=== PATIENT | male | born 1955 | race Caucasian/White ===

== ENCOUNTER 2016-05-05 22:04 | Emergency (ER) | payer BC ==
[2016-05-05] MEDS ORDERED: NITROGLYCERIN 0.4 MG TAB SL PRN (22:19)
[2016-05-05] MEDS ORDERED: ASPIRIN 81 MG CHEWABLE CTB PO STA (22:19)
[2016-05-05 22:24] VITALS: TEMP 98.6
[2016-05-05] MEDS ORDERED: NITROGLYCERIN 0.4 MG TAB SL ONE (22:25)
[2016-05-05] MEDS ORDERED: ASPIRIN 81 MG CHEWABLE CTB ONE (22:25)
[2016-05-05 22:27] LABS: BASOPHILS % (AUTO) 1 % (0-3); EOSINOPHILS % (AUTO) 1 % (0-9); HEMATOCRIT 46 % (39-53); MEAN CORPUSCULAR HGB CONC 34.8 gm/dl (32.0-36.0); MEAN CORPUSCULAR VOLUME 86 fL (80-100); MONOCYTES % (AUTO) 6.1 % (0-12); NEUTROPHILS % (AUTO) 79.1 % (37-80)
[2016-05-05] MEDS: SODIUM CHLORIDE 0.9% FLUSH 10 ML SOL IV PRN (22:33)
[2016-05-05] MEDS ORDERED: ALUMINUM/MAGNESIUM 30 ML SUS PO PRN (22:41)
[2016-05-05] MEDS ORDERED: LIDOCAINE HCL 2% (VISCOUS) 20 ML SOL MT ONE (22:42)
[2016-05-05] MEDS ORDERED: LIDOCAINE HCL 2% (VISCOUS) 20 ML SOL ONE (22:43)
[2016-05-05] MEDS ORDERED: ALUMINUM/MAGNESIUM 30 ML SUS ONE (22:43)
[2016-05-05] MEDS ORDERED: MORPHINE SULFATE 10 MG/ML SOL IV ONE (22:52)
[2016-05-05] MEDS ORDERED: ONDANSETRON HCL 4 MG/2 ML SOL IV ONE (22:52)
[2016-05-05] MEDS ORDERED: ONDANSETRON HCL 4 MG/2 ML SOL ONE (22:54)
[2016-05-05] MEDS ORDERED: MORPHINE SULFATE 10 MG/ML SOL ONE (22:54)
[2016-05-05 22:56] LABS: ALT 47 IU/L (14-63); CALCIUM 9.1 mg/dl (8.5-10.1); GLOM FILT RATE 62 mL/min (>60); POTASSIUM 4.6 mMol/L (3.5-5.1); SODIUM 132 mMol/L (136-145)
[2016-05-05 23:53] VITALS: BP 134/65; PULSE 68; RESP 21; O2SAT 99
[2016-05-06] MEDS ORDERED: PANTOPRAZOLE SODIUM 40 MG/10 ML PDS IV ONE (01:33)
[2016-05-06] MEDS: METOCLOPRAMIDE HCL 5 MG/ML 10 MG in SODIUM CHLORIDE 0.9% 50 ML 50 ML IV ONE ×2 (01:34→01:40)
[2016-05-06] MEDS ORDERED: PANTOPRAZOLE SODIUM 40 MG/10 ML PDS ONE (01:36)
[2016-05-06] MEDS ORDERED: METOCLOPRAMIDE HYDROCHLORIDE 5 MG/ML SOL ONE (01:38)
[2016-05-06] MEDS ORDERED: METOCLOPRAMIDE HYDROCHLORIDE 5 MG/ML SOL IV ONE (01:41)
[2016-05-06] MEDS: SODIUM CHLORIDE 0.9% FLUSH 10 ML SOL IV PRN (01:46)
[2016-05-06 02:20] LABS: THYROID STIMULATING HORMONE 1.633 uU/ml (0.358-3.740)
== END 2016-05-06 02:47 | disposition home or self-care (01) ==
LOC: ED 22:04
DX: R10.13 Epigastric pain (principal); N20.0 Calculus of kidney; Z87.442 Personal history of urinary calculi; R14.0 Abdominal distension (gaseous); E11.65 Type 2 diabetes mellitus with hyperglycemia; Z79.84 Long term (current) use of oral hypoglycemic drugs; R06.02 Shortness of breath
CPT/HCPCS: 99285 ×3; 71010; 74176; 80053; 80301; 82009; 82550; 83690; 83880; 84443; 84484 ×2; 85025; 85378; 85610; 85730; 93005; J2270; J2405; J2765; 36415; 80307; 96374; 96375

== ENCOUNTER 2018-03-08 13:02 | Inpatient (IN) | payer BC ==
[2018-03-08 13:53] VITALS: PULSE 62; RESP 20
[2018-03-08 16:35] VITALS: BP 165/82; TEMP 97.8; O2SAT 93
[2018-03-08] MEDS ORDERED: ONDANSETRON HCL 4 MG/2 ML SOL IV PRN (16:50)
[2018-03-08] MEDS ORDERED: ONDANSETRON 4 MG ODT BU PRN (16:50)
[2018-03-08] MEDS: SODIUM CHLORIDE 0.9% FLUSH 10 ML SOL IV SCH ×2 (17:07→17:18)
[2018-03-08] MEDS: HYDROMORPHONE 1 MG/ML SYRINGE IV PRN ×2 (17:07→21:12)
[2018-03-08] MEDS ORDERED: SODIUM CHLORIDE 0.9% 1000ML 1,000 ML IV SCH (19:45)
[2018-03-08] MEDS ORDERED: ATORVASTATIN 10 MG TAB PO SCH (21:00)
[2018-03-08] MEDS ORDERED: ZOLPIDEM TARTRATE 5 MG TAB PO SCH (21:00)
[2018-03-08] MEDS ORDERED: POTASSIUM CITRATE 1080 MG PO SCH (21:00)
[2018-03-08] MEDS ORDERED: INSULIN GLARGINE, RECOMBINAN 100 U/ML SOL SC SCH (21:00)
[2018-03-09] MEDS ORDERED: SERTRALINE HYDROCHLORIDE 50 MG TAB PO SCH (09:00)
[2018-03-09] MEDS ORDERED: ALLOPURINOL 100 MG TAB PO SCH (09:00)
[2018-03-09] MEDS ORDERED: ATENOLOL 25 MG TAB PO SCH (09:00)
[2018-03-09] MEDS ORDERED: FUROSEMIDE 20 MG TAB PO SCH (09:00)
[2018-03-09] MEDS ORDERED: LISINOPRIL 5 MG TAB PO SCH (09:00)
[2018-03-09] MEDS ORDERED: TAMSULOSIN HYDROCHLORIDE 0.4 MG CAP PO SCH (09:00)
== END 2018-03-08 22:05 | disposition short-term general hospital (02) | DRG 465 ==
LOC: ACUTE CARE 13:02
PROVIDERS: ADMIT Family Medicine; ATTEND Family Medicine
DX: N20.0 Calculus of kidney (principal); E11.9 Type 2 diabetes mellitus without complications; I10 Essential (primary) hypertension; E78.5 Hyperlipidemia, unspecified; G47.00 Insomnia, unspecified; F41.9 Anxiety disorder, unspecified
CPT/HCPCS: 74176; 82962; J1817; J2405; A9270-GY; J1170